=== PATIENT | male | born 1975 | race Caucasian/White ===

== ENCOUNTER → 2023-09-13 | Outpatient (CLI) | payer OTHER ==
--- NOTE | 2023-09-13 11:22 | CT ---
EXAMINATION TYPE: CT abdomen pelvis w con DATE OF EXAM: 09/13/2023 COMPARISON: NONE HISTORY: 48-year-old male R10.12, LUQ pain, chronic diarrhea. TECHNIQUE: Contiguous axial scanning of the abdomen and pelvis following administration of 100 ml Iso genia 300 IV contrast. Delayed images through the kidneys and coronal/sagittal reconstructions perform ed. CT DLP: 1772 mGycm Automated exposure control for dose reduction was used. FINDINGS: Heart normal size without pericardial effusion. Lung bases clear without pleural effusion. Tiny hiatal hernia. 1.2 cm focus of hypervascularity lateral right liver lobe either vascular shunting or flash filling h emangioma. Otherwise, no focal liver lesion or biliary ductal dilatation. Portal venous system is pat ent. Gallbladder, adrenal glands, spleen, and pancreas within normal limits. Punctate 3 mm nonobstructive right renal calculus. Symmetric uptake and excretion of contrast from kanwal th kidneys. No hydronephrosis. Bilateral renal cortical cysts measuring up to 6.0 cm on the right and 4.3 cm on the left. No dilated small bowel, free fluid, or free air. No mesenteric or retroperitoneal lymphadenopathy. Normal appendix. Oral contrast progressed to the rectum. No pericolonic inflammatory change. Bladder urine distended. Pelvic phleboliths. Prostate gland measures 4.7 cm wide. No abnormal fluid c ollection in the pelvis or pelvic lymphadenopathy. Anterior endplate spondylosis lower thoracic spine. Transitional lumbosacral segment with a sacralize d L5. Facet arthropathy and mild degenerative disc disease above at L4-L5. IMPRESSION: 1. TINY HIATAL HERNIA, PUNCTATE 3 MM NONOBSTRUCTIVE RIGHT RENAL STONE, BILATERAL BENIGN RENAL CORTICA L CYSTS MEASURING UP TO 6.0 CM, AND MILD PROSTATOMEGALY AT 4.7 CM WIDE. 2. NO ACUTE INFLAMMATORY PROCESS IDENTIFIED IN THE ABDOMEN OR PELVIS TO EXPLAIN THE PATIENT'S SYMPTOM S.
== END | disposition home or self-care (01) ==
LOC: RADCTMAIN 07:49
PROVIDERS: ATTEND Family Medicine
DX: K44.9 Diaphragmatic hernia without obstruction or gangrene (principal); N20.0 Calculus of kidney; N40.0 Benign prostatic hyperplasia without lower urinary tract symptoms; N28.1 Cyst of kidney, acquired; K52.9 Noninfective gastroenteritis and colitis, unspecified
CPT/HCPCS: 74177; Q9967

== ENCOUNTER 2023-11-15 10:09 | Day surgery (SDC) | payer OTHER ==
[~2023-11-15 10:09] MED LIST: LACTATED RINGERS 1,000 ML IV SCH
[2023-11-15 10:32] VITALS: TEMP 97.7
[2023-11-15] MEDS: IV FLUID CONTINUATION 1,000 ML IV ONE (10:32)
[2023-11-15] MEDS ORDERED: LIDOCAINE 1% INJ 10MG/ML (20 ML MDV) ONE (11:10)
[2023-11-15] MEDS ORDERED: PROPOFOL 10 MG/ML 20 ML VIAL IV ONE (11:10)
--- NOTE | 2023-11-15 11:35 | P.PCN ---
Date of Procedure: 11/15/23 Procedure(s) Performed: BRIEF HISTORY: Patient is a 48-year-old pleasant [] scheduled for an elective colonoscopy as a part of evaluation of chronic diarrhea for the last 6 months duration. He has bowel movement daily from 5 to 6 cm loose to watery in consistency but no blood or mucus in the stool. He was noted to have Hemoccult positive stool. PROCEDURE PERFORMED: Colonoscopy with biopsy. PREOPERATIVE DIAGNOSIS: Chronic diarrhea with blood in the stool. IV sedation per Anesthesia. PROCEDURE: After informed consent was obtained, the patient, was brought into the endoscopy unit. IV sedation was administered by Anesthesia under continuous monitoring. Digital rectal examination was normal. Initially the Olympus CF-160 flexible video colonoscope was then inserted in the rectum, gradually advanced into the cecum without any difficulty. Careful examination was performed as the scope was gradually being withdrawn. Ileocecal valve and the appendiceal orifice were visualized and appeared normal. Prep was excellent. Terminal ileum was intubated in 20 cm visualized and appeared normal. Mucosa of the cecum, ascending colon, transverse colon, descending colon, sigmoid colon, and rectum appeared normal. Sigmoid diverticulosis. Random biopsies were done from the ascending and descending colon to rule out microscopic/collagenous colitis. Retroflexion was performed in the rectum and no lesions were seen. The patient tolerated the procedure well. IMPRESSION: Normal-appearing colon from rectum to cecum with no evidence of colitis or colorectal neoplasia. Scattered sigmoid diverticulosis. Normal-appearing terminal ileum. RECOMMENDATIONS: Findings of this examination were discussed with the patient as well as his family. He was advised to follow-up with the biopsy results. He will be seen in the office in 2 to 3 weeks..
[2023-11-15 11:55] VITALS: BP 118/81; PULSE 69; RESP 16
== END 2023-11-15 12:30 | disposition home or self-care (01) ==
LOC: ORWHC2ENDO 10:09
PROVIDERS: ATTEND Internal Medicine Gastroenterology
DX: K57.30 Diverticulosis of large intestine without perforation or abscess without bleeding (principal)
CPT/HCPCS: 88305; 45380; J2001; J2704